=== PATIENT | female | born 1950 | race Caucasian/White ===

== ENCOUNTER 2020-08-10 10:07 | Inpatient (IN) | payer OTHER ==
[~2020-08-10] VITALS: Ht 154.9 cm; Wt 88.0 kg
[2020-08-10 15:05] LABS: HEMOGLOBIN 12.4 gm/dl (12.3-15.3); RED BLOOD COUNT 4.34 M/UL (4.00-5.10); WHITE BLOOD COUNT 6.3 K/UL (4.5-11.0)
[2020-08-10 15:25] LABS: BUN/CREATININE RATIO 17 (0-10)
[2020-08-10] MEDS ORDERED: GABAPENTIN800 MG PO (19:46)
[2020-08-10] MEDS ORDERED: CLONAZEPAM1 MG PO (19:46)
[2020-08-10] MEDS ORDERED: ACEBUTOLOL HCL200 MG PO (19:47)
[2020-08-10] MEDS ORDERED: ANASTROZOLE1 MG PO (19:47)
[2020-08-10] MEDS ORDERED: GLYBURIDE-METF1 EACH PO (19:48)
[2020-08-10] MEDS ORDERED: DULOXETINE HCL60 MG PO (19:48)
[2020-08-10] MEDS ORDERED: COZAAR 50MG TAB50 MG PO (19:48)
[2020-08-10] MEDS ORDERED: HYDROXYZINE PAM25 MG PO (19:48)
[2020-08-10] MEDS ORDERED: TRADJENTA5 MG PO (19:49)
[2020-08-10] MEDS ORDERED: MONTELUKAST SOD10 MG PO (19:49)
[2020-08-10] MEDS ORDERED: PRAVASTATIN SOD20 MG PO (19:49)
[2020-08-10] MEDS ORDERED: ZANAFLEX 4 MG TA4 MG PO (19:50)
[2020-08-11 02:48] LABS: HEMOGLOBIN 11.6 gm/dl (12.3-15.3); RED BLOOD COUNT 4.06 M/UL (4.00-5.10); WHITE BLOOD COUNT 6.6 K/UL (4.5-11.0)
[2020-08-11 03:09] LABS: BUN/CREATININE RATIO 24 (0-10)
[2020-08-11 15:47] LABS: HEMOGLOBIN 12.3 gm/dl (12.3-15.3); RED BLOOD COUNT 4.29 M/UL (4.00-5.10)
[2020-08-12 03:17] LABS: HEMOGLOBIN 11.4 gm/dl (12.3-15.3); RED BLOOD COUNT 4.05 M/UL (4.00-5.10)
[2020-08-12 03:24] LABS: WHITE BLOOD COUNT 7.8 K/UL (4.5-11.0)
[2020-08-12 03:37] LABS: BUN/CREATININE RATIO 22 (0-10)
--- NOTE | 2020-08-12 05:11 | NUR ---
PATIENT STATED THAT LEFT ARM RESTRICTION WAS FROM A MASTECTOMY PERFORMED SEVERAL YEARS PRIOR. PATIENT WAS OKAY WITH HAVING IV INSERTED IN LEFT HAND. NO S/SX OF PAIN, DISCOMFORT, OR DISTRESS. NO S/SX OF INFECTION OR INFILLTRATION TO IV SITE.----JASPREET HYDE 08/11/201999.
[2020-08-12] MEDS ORDERED: PERCOCET 5/325 T1 EA PO (15:02)
[2020-08-12] MEDS ORDERED: IBUPROFEN IB200 MG PO (15:02)
[2020-08-12] MEDS ORDERED: LOVENOX30 MG/0.3 SQ (15:10)
[2020-08-13 05:42] LABS: HEMOGLOBIN 10.8 gm/dl (12.3-15.3); RED BLOOD COUNT 3.81 M/UL (4.00-5.10)
[2020-08-13 05:47] LABS: WHITE BLOOD COUNT 5.7 K/UL (4.5-11.0)
[2020-08-13 06:07] LABS: BUN/CREATININE RATIO 25 (0-10)
[2020-08-14 06:03] LABS: HEMOGLOBIN 10.8 gm/dl (12.3-15.3); RED BLOOD COUNT 3.74 M/UL (4.00-5.10); WHITE BLOOD COUNT 4.6 K/UL (4.5-11.0)
[2020-08-14 06:26] LABS: BUN/CREATININE RATIO 21 (0-10)
[2020-08-15] MEDS ORDERED: PERCOCET 5-3251 EACH PO ×2 (14:28→16:56)
== END 2020-08-14 18:27 | disposition home or self-care (01) | DRG 494 ==
LOC: ER1 10:07 → CDU 12:49 → M/S 12:49
PROVIDERS: Orthopaedic Surgery; Physician Assistant; ADMIT Family Medicine
PROC: 0QSG04Z Reposition Right Tibia with Internal Fixation Device, Open Approach (ICD-10-PCS; principal; 2020-08-11 09:51)
DX: S82.851A Displaced trimalleolar fracture of right lower leg, initial encounter for closed fracture (principal); E11.9 Type 2 diabetes mellitus without complications; I10 Essential (primary) hypertension; E78.5 Hyperlipidemia, unspecified; E66.9 Obesity, unspecified; Z20.822 Contact with and (suspected) exposure to COVID-19; Z85.3 Personal history of malignant neoplasm of breast; Z79.84 Long term (current) use of oral hypoglycemic drugs; Z79.899 Other long term (current) drug therapy; W00.0XXA Fall on same level due to ice and snow, initial encounter; Z68.36 Body mass index [BMI] 36.0-36.9, adult
CPT/HCPCS: 27818; 36415; 70450; 71045; 73590; 73610; 73700; 76000; 80048; 80053; 82550; 82553; 82962; 83036; 84443; 84484; 85025; 85027; 85610; 90471; 90715; 93005; 93971; 96374; 96375; 97110; 97110-GP-CQ; 97116-GP-CQ; 97161; 97165; 97530; 97535; 99285; C1713; G0378; J0592; J0690; J1100; J1170; J1650; J1885; J2001; J2270; J2400; J2405; J2704; J2765; J2795; J3010; J3370; J7030; U0002